=== PATIENT | female | born 1990 | race Caucasian/White ===

== ENCOUNTER 2021-05-15 12:20 | Emergency (ER) | payer OTHER ==
[~2021-05-15] VITALS: Ht 165.1 cm; Wt 81.7 kg
[2021-05-15 12:32] VITALS: BP 125/77
[2021-05-15] MEDS ORDERED: MEDROLDOSEPACK PO (12:49)
[2021-05-16] MEDS ORDERED: MEDROLDOSEPACK PO (11:08)
== END 2021-05-15 13:00 | disposition home or self-care (01) ==
LOC: ER 12:20
DX: L25.9 Unspecified contact dermatitis, unspecified cause (principal)